=== PATIENT | female | born 1955 | race Caucasian/White ===

== ENCOUNTER 2019-09-09 07:38 | Inpatient (IN) | payer MEDICARE, MEDICAID ==
[2019-09-09] MEDS ORDERED: Morphine 4 MG/ML VIAL (1 ml) 4 MG/ML VIAL IV ONE ×2 (07:47→10:43)
[2019-09-09] MEDS ORDERED: NS 0.9% 1000 ML** 1,000 ML IV ONE (07:47)
--- NOTE | 2019-09-09 07:53 | ED ---
Skin Complaint - HPI Summary HPI Summary: The patient is a 64 y/o F arriving by ambulance to [facility] with a chief complaint of painful lesion to the lower sternal chest for the last three weeks. She reports that when the changes in her skin began, there was erythema surrounding a larger darkened area with pain especially to touch. Since onset, she states that the darkened area has since become smaller, but there is still erythema and pain as well as discharge from the wound. Pain currently rated 10/10 in severity. She denies any jones to the area, and she has not experienced any fevers or chills. She notes a severe sore throat that began yesterday. There are no rashes anywhere else on her body. PMHx: HTN, COPD, scoliosis. Current smoker, no EtOH, no substance use. Medications reviewed. Allergies noted. - History of Current Complaint Stated Complaint: CHEST WOUND/SORE THROAT PER EMS Hx Obtained From: Patient Onset/Duration: Started Weeks Ago - three, Still Present Skin Exposure Onset/Duration: Weeks Ago Timing: Constant Onset Severity: Moderate Current Severity: Severe Pain Intensity: 10 Pain Scale Used: 0-10 Numeric Skin Location: Chest - lower Character: Pain, Redness Aggravating Symptom(s): Touch Alleviating Symptom(s): Nothing Associated Signs & Symptoms: Drainage - from wound - Allergy/Home Medications Allergies/Adverse Reactions: Allergies Allergy/AdvReac Type Severity Reaction Status Date / Time No Known Allergies Allergy Verified 08/10/19 09:18 Home Medications: Home Medications Atorvastatin* [Lipitor*] 40 mg PO DAILY 09/09/19 [History Confirmed 09/09/19] Budesonide/Formote 160/4.5(NF) [Symbicort 160/4.5 (NF)] 2 puff INH BID PRN 09/09 [History Confirmed 09/09/19] Cyclobenzaprine TAB* [Flexeril 10 MG TAB*] 10 mg PO TID PRN 09/09/19 [History Confirmed 09/09/19] Gabapentin CAP(*) [Neurontin 300 CAP(*)] 300 mg PO TID 09/09/19 [History Confirmed 09/09/19] Ibuprofen TAB* [Motrin TAB* 600 MG] 600 mg PO .Q6-8H PRN 09/09/19 [History Confirmed 09/09/19] Lisinopril/Hydrochlorothiazide [Lisinopril-Hctz 10-12.5 mg Tab] 1 - 2 tab PO DAILY 09/09/19 [History Confirmed 09/09/19] Multivitamins/Minerals TAB* [Theragran/minerals TAB*] 1 tab PO DAILY 09/09/19 [ History Confirmed 09/09/19] Oxycodone TAB(NF) [Oxycodone HCl 10 MG] 10 mg PO .2-3X/DAY PRN 09/09/19 [ History Confirmed 09/09/19] Sertraline* [Zoloft*] 50 mg PO DAILY 09/09/19 [History Confirmed 09/09/19] Triamcinolone 0.1% Oint (NF) [Triamcinolone Acetonide] 0.1 % TOPICAL BID [History Confirmed 09/09/19] diphenhydrAMINE HCl [Sleep Aid] 25 mg PO BEDTIME PRN 09/09/19 [History Confirmed 09/09/19] PMH/Surg Hx/FS Hx/Imm Hx Endocrine/Hematology History: Denies: Hx Diabetes Cardiovascular History: Reports: Hx Hypertension - TAKES MEDICATION Denies: Hx Pacemaker/ICD Respiratory History: Reports: Hx Chronic Obstructive Pulmonary Disease (COPD) History: Denies: Hx Dialysis, Hx Renal Disease Musculoskeletal History: Reports: Hx Scoliosis Sensory History: Denies: Hx Hearing Aid Psychiatric History: Denies: Hx Panic Disorder - Surgical History Surgical History: Yes Surgery Procedure, Year, and Place: 10/30/08 LEFT L4-5 LAMINOTOMY,[facility]. DECREASED OVARIES/WEDGE - Family History Known Family History: Positive: Hypertension - Social History Alcohol Use: None Hx Substance Use: No Substance Use Type: Reports: None Hx Tobacco Use: Yes Smoking Status (MU): Current Every Day Smoker Review of Systems Negative: Fever, Chills Positive: Sore Throat Positive: Other - erythema and blackened lesion to the chest with pain, discharge from wound. Negative: Rash - anywhere else on body All Other Systems Reviewed And Are Negative: Yes Physical Exam - Summary Physical Exam Summary: Constitutional: Well-developed, Well-nourished, Alert. (-) Distressed Skin: Warm, Dry; 6cm by 6cm necrotic-looking tissue centered on the lower aspect of the sternum, the superior aspect to that has eroded tissue with subcutaneous tissue visualized, slight erythema surrounding the area with tenderness HENT: Normocephalic; Atraumatic Eyes: Conjunctiva normal Neck: Musculoskeletal ROM normal neck. (-) JVD, (-) Stridor, (-) Tracheal deviation Cardio: Rhythm regular, rate normal, Heart sounds normal; Intact distal pulses; Radial pulses are 2+ and symmetric. (-) Murmur Pulmonary/Chest wall: Effort normal. (-) Respiratory distress, (-) Wheezes, (-) Rales Abd: Soft, (-) tenderness, (-) Distension, (-) Guarding, (-) Rebound Musculoskeletal: (-) Edema Lymph: (-) Cervical adenopathy Neuro: Alert, Oriented x3 Psych: Mood and affect Normal Triage Information Reviewed: Yes Vital Signs Reviewed: Yes Procedures - Sedation Patient Received Moderate/Deep Sedation with Procedure: No Diagnostics - Laboratory Result Diagrams: 09/09/19 07:57 09/09/19 07:57 Lab Statement: Any lab studies that have been ordered have been reviewed, and results considered in the medical decision making process. - CT Chest CT CT Interpretation Completed By: Radiologist Summary of CT Findings: Impression: 1. Soft tissue ulceration anterior to the sternum without appreciable associated erosion or periosteal reaction of the sternum. 2. Patchy airspace disease of the upper lungs bilaterally. 3. Cirrhotic liver. 4. Bilateral adrenal nodules measuring up to 2.4 cm. These are indeterminate and the differential includes metastatic disease to the adrenal glands. Recommend consideration of tissue sampling. ED physician has reviewed this report. Re-Evaluation - Re-Evaluation First Eval Re-Evaluation Time: 10:10 Comment: Discussed results and plan for further treatment with admission. Patient understands and agrees with plan. Course/Dx - Course Course Of Treatment: Patient arrived via EMS with a wound to her chest for 3 weeks. Patient has necrotic-looking wound that [place] straight into her subcutaneous tissue. Outside of that, patient's overall well-appearing. Patient had blood performed which showed a sodium of 118. Patient appears euvolemic but needs to be worked up for that as she's never had hyponatremia before. Patient had a CT scan which showed no erosion into the sternum. Surgery was counseled that in the debridement of the wound at bedside. Patient was admitted to the ICU. - Diagnoses Provider Diagnoses: Hyponatremia, Skin necrosis, Leukocytosis - Physician Notifications Discussed Care Of Patient With: Kyliegh Maddox - structural analyst Time Discussed With Above Provider: 09:55 Instructed by Provider To: Other - Dr. Fang, hospitalist, recommends admission to ICU. I discussed the patients case with Dr. Maddox, who accepts the patient for admission to the ICU. She recommends consultation with surgery. I spoke with Dr. Durham from surgery, who will consult for the patient [10:00]. - Critical Care Time Critical Care Time: 30-74 min - 35 minutes Discharge ED - Sign-Out/Discharge Documenting (check all that apply): Patient Departure - Patient accepted for admission to ICU by Dr. Maddox. - Discharge Plan Condition: Stable Disposition: ADMITTED TO [facility] - Billing Disposition and Condition Condition: STABLE Disposition: Admitted to [facility] - Attestation Statements Document Initiated by Ty: Yes Documenting Scribe: Halle Morillo Provider For Whom Ty is Documenting (Include Credential): Dr. Malvin Delaney MD Scribe Attestation: IHalle, scribed for Dr. Malvin Delaney MD on 09/09/19 at 1514. Scribe Documentation Reviewed: Yes Provider Attestation: The documentation as recorded by the Halle zaragoza accurately reflects the service I personally performed and the decisions made by me, Dr. Malvin Delaney MD Status of Ty Document: Viewed
[2019-09-09 08:06] LABS: ABS Basophils 0.1 10^3/ul (0-0.2); ABS Eosinophils 0.2 10^3/ul (0-0.6); ABS Lymphocytes 1.4 10^3/ul (1.0-4.8); ABS Monocytes 0.8 10^3/ul (0-0.8); ABS Neutrophils 15.8 10^3/ul (1.5-7.7); Eosinophil % 1.2 %; Hematocrit 36 % (35-47); Lymphocyte % 7.8 %; Mean Corpuscular HGB Conc 36 g/dL (31-36); Mean Corpuscular Hemoglobin 31 pg (27-31); Mean Corpuscular Volume 87 fL (80-97); Platelet Count 350 10^3/uL (150-450); Red Blood Count 4.16 10^6 /uL (3.70-4.87); Red Cell Distribution Width 13 % (10-15); White Blood Count 18.3 10^3/uL (3.5-10.8)
[2019-09-09 08:16] LABS: INR 1.41 (0.82-1.09)
[2019-09-09 08:22] LABS: Albumin 3.4 g/dL (3.2-5.2); Albumin/Globulin Ratio 0.9 (1-3); BUN/Creatinine Ratio 28.3 (8-20); C Reactive Protein 109.53 mg/L (<8.01); Calcium 8.7 mg/dL (8.6-10.3); EGFR African American 122.6 (>60); EGFR Non-African American 101.3 (>60); Globulin 3.7 g/dL (2-4); Potassium 2.9 mmol/L (3.5-5.0); Total Bilirubin 0.7 mg/dL (0.2-1.0); Total Protein 7.1 g/dL (6.4-8.9)
[2019-09-09] MEDS ORDERED: Iohexol 300* (CONTRAST) 10 ML SDV IV ONE (08:26)
[2019-09-09] MEDS ORDERED: Clindamycin 600 MG/D5W BAG(*) 600 MG/50 ML BAG IV ONE (08:57)
[2019-09-09] MEDS ORDERED: Vancomycin(*) 1,500 MG in NS 0.9% 250 ML* 250 ML IVPB ONE (09:03)
[2019-09-09 09:28] LABS: Urine Appearance Clear; Urine Bilirubin Negative (Negative); Urine Blood 1+ (Negative); Urine Color Straw; Urine Glucose Negative (Negative); Urine Ketones Negative (Negative); Urine Nitrite Negative (Negative); Urine Protein Negative (Negative); Urine Specific Gravity 1.004 (1.010-1.030); Urine Urobilinogen Negative (Negative)
[2019-09-09 09:34] LABS: Urine Bacteria 1+ (Absent); Urine Red Blood Cell Trace(0-2/hpf) (Absent); Urine Squamous Epithelial Cell Present (Absent); Urine White Blood Cell 1+(6-10/hpf) (Absent)
[2019-09-09] MEDS ORDERED: NS 0.9% 250 ML* 250 ML ONE (10:00)
[2019-09-09] MEDS ORDERED: Lidocaine 1% MPF ** 5 ML VIAL ONE (10:26)
[2019-09-09] MEDS ORDERED: NS 0.9% 1000 ML** 1,000 ML IV SCH (10:45)
--- NOTE | 2019-09-09 11:22 | HP ---
History of Present Illness - History of Present Illness Reason for Visit: sternal wound for 6 weeks History of Present Illness: 64 year old F with history of Hypertension, COPD, chronic back pain and tobacco use presented to [facility] with complain of anterior chest wall wound associated with pain. According to patient she was apparently well 6 weeks ago then she noticed dark erythematous area surrounded by light erythematous area on the lower sternum which was tender to touch. It was gradual on onset, slowly progressive with erythema turning to open wound and there was discharge from the wound since 1-2 days which was dark brown in color and contained some pus. It is associated with pain which according to her is 10/10 and is increased by touch; which prompted her to come to ED. She denies fever, chills and rigor. According to her, she is also having sore throat for couple of days associated with difficulty in swallowing. She also has cough which is productive at times; whitish in color. She denies chest pain, shortness of breath and palpitation. She mentions that she is not eating and drinking well because of her sore throat. She denies burning or increased frequency of micturition. She has normal bowel habit with last BM today morning. She denies fatigue and weakness. Hospital stay Her vitals are stable except mild tachycardia. Blood work showed WBC of 18.3 with left shift, Na 118, K 2.9, Cl 81, AST 101, ALT 59, CRP 109.3 and abnormal urinalysis. Chest CT was done which showed soft tissue ulceration anterior to sternum without osteomyelitis, Patchy airspace disease of the upper lungs bilaterally, cirrhotic liver, and bilateral adrenal nodule measuring up to 2.4 cm recommending tissue sampling. She was given IVF and IV antibiotics. Surgery was consulted and debridement of wound was done and sent to lab. - Past Medical History Past Medical History: 1. COPD 2. Hypertension 3. Scoliosis 4. Chronic back pain - Past Surgical History Past Surgical History: 1. Lumbar disckectomy 2. Ovarian Surgery - Past Family History Past Family History: Noncontributory - Past Social History Past Social History: Patient lives alone and is on disability. She smokes 1-1 and half of cigarette a day since she was 15. She quit alcohol 6 years ago; used to drink depending on mood, sometimes 6 pack of beer. She denies recreational drug use. Her PCP is Juana Guillen. She is full code. Medications: Home Medications Medication Instructions Recorded Confirmed Type Atorvastatin* [Lipitor*] 40 mg PO DAILY 09/09/19 09/09/19 History Budesonide/Formote 160/4.5(NF) 2 puff INH BID PRN 09/09/19 09/09/19 History [Symbicort 160/4.5 (NF)] Cyclobenzaprine TAB* [Flexeril 10 10 mg PO TID PRN 09/09/19 09/09/19 History MG TAB*] Gabapentin CAP(*) [Neurontin 300 300 mg PO TID 09/09/19 09/09/19 History CAP(*)] Ibuprofen TAB* [Motrin TAB* 600 MG] 600 mg PO .Q6-8H PRN 09/09/19 09/09/19 History Lisinopril/Hydrochlorothiazide 1 - 2 tab PO DAILY 09/09/19 09/09/19 History [Lisinopril-Hctz 10-12.5 mg Tab] Multivitamins/Minerals TAB* 1 tab PO DAILY 09/09/19 09/09/19 History [Theragran/minerals TAB*] Oxycodone TAB(NF) [Oxycodone HCl 10 mg PO .2-3X/DAY PRN 09/09/19 09/09/19 History 10 MG] Sertraline* [Zoloft*] 50 mg PO DAILY 09/09/19 09/09/19 History Triamcinolone 0.1% Oint (NF) 0.1 % TOPICAL BID 09/09/19 09/09/19 History [Triamcinolone Acetonide] diphenhydrAMINE HCl [Sleep Aid] 25 mg PO BEDTIME PRN 09/09/19 09/09/19 History Allergies/Adverse Reactions: Allergies Allergy/AdvReac Type Severity Reaction Status Date / Time No Known Allergies Allergy Verified 08/10/19 09:18 Review of Systems - Review of Systems Constitutional: Negative: Fever, Chills, Sweats, Weakness, Malaise, Other Eyes: Negative: Pain, Vision Change, Conjunctivae Inflammation, Eyelid Inflammation, Redness, Other ENT: Positive: Throat Pain. Negative: Ear Pain, Ear Discharge, Nose Pain, Nose Discharge, Nose Congestion, Mouth Pain, Mouth Swelling, Throat Swelling, Other Respiratory: Positive: Cough. Negative: Dry, Shortness of Breath, Hemoptysis, SOB with Excertion, Pleuritic Pain, Sputum, Wheezing Cardiovascular: Positive: Chest Pain. Negative: Palpitations, Orthopnea, Paroxysmal Noc. Dyspnea, Edema, Light Headedness, Other Gastrointestinal: Negative: Nausea, Vomiting, Abdominal Pain, Diarrhea, Constipation, Melena, Hematochezia, Other Genitourinary: Negative: Dysuria, Frequency, Incontinence, Hematuria, Retention , Other Musculoskeletal: Positive: Back Pain. Negative: Neck Pain, Shoulder Pain, Arm Pain, Hand Pain, Leg Pain, Foot Pain, Other Skin: Positive: Rash, Lesions. Negative: Stephane, Bruising, Other Neurological: Negative: Weakness, Numbness, Incoordination, Change in Speech, Confusion, Seizures, Other Exam Vital Signs: Vital Signs (72 hours) 09/09/19 09/09/19 09/09/19 07:42 08:49 10:49 Temperature 98.5 F Pulse Rate 97 Respiratory 18 18 18 Rate Blood Pressure 166/79 (mmHg) O2 Sat by Pulse 98 Oximetry Exam: General: Patient is lying on a bed with no acute distress, well built and well appearing HEENT: Normocephalic and atraumatic. Sclera anicteric and PERRLA Neck: No JVD and organomegaly Chest: Pre-debridement:Open wound on lower part of sternum around 6.5 X 4cm; erythematous and tenderness present. No active discharge noted. Post-debridement : Dressing C/D/I Lungs: Good respiratory effort. clear with no added sound heard Heart: Normal in rate and rhythm. S1/S2 heard with no murmur, rub and gallop Abdomen: Soft, nondistended and nontender. Normal BS heard Extremities: No swelling and cyanosis or clubbing Neuro: Alert, oriented and cooperative. Moving all four extremity equally. Result Diagrams: 09/09/19 07:57 09/09/19 07:57 Assessment/Plan - Assessment/Plan Assessment: 64 F with PMH of HTN, COPD, scoliosis and tobacco use presented with subacute lower sternal wound associated with pain and tenderness. FOund to be in sepsis( tachycardia and leucocytosis) with source being open wound, severe asymtomatic hyponatremia, hypokalemia, transaminitis and elevated CRP. Chest CT showing soft tissue ulceration on anterior sternum without OM, cirrhosis of liver and bilateral adrenal nodule. Received IVF and iv abx. Admitted to ICU because of sepsis and severe hyponatremia. Plan: Hospital diagnosis 1. Sepsis 2/2 anterior chest wall wound 2. Severe Hyponatremia 3. Hypokalemia 4. Bilateral adrenal nodule 5. Cirrhosis of liver Cardiovascular: (1) Hypertension -- HR 97 bpm -- SBP 166 -- Telemetry --We will hold her BP meds as she is in sepsis; once this subsides or if her BP elevates we will restart her home med. --Do not start HCTZ as this could also be the cause for her electrolyte abnormality Home meds:Lisinopril, HCTZ, Lipitor Pulmonary: (1) COPD -- RR 18 -- sats 98% on room air -- Continue home inhaler Home meds: symbicort Gastrointestinal:(1) Transaminitis (2) Cirrhosis -- LFTs Tbili 0.8 ALP 83 AST 101 ALT 59 -- No ascites -- diet: NPO -- bowel regimen: None -- ulcer prophylaxis: not indicated at this time --Avoid liver toxic meds Home meds: None Endocrine: (1) Bilateral adrenal nodules measuring 2.4 cm (2) Hirsutism --Hirsutism- she has history of ovarian surgery which according to her was because of enlarged ovary; which means she had PCOS given her hirsutism which explains it cause; If not then this could also be from adrenal mass which is secreting sex hormones -Given her adrenal mass, HTN, hypokalemia we should also consider sending PAC and PRA; CT recommends tissue sampling. D/D for adrenal mass- malignancy(less likely), macronodular hyperplasia, cortical adenoma -- monitor BGs Home meds: None Renal: (1) Severe Hyponatremia (2) Hypokalemia -- UOP: strict ins and outs -- Cr 0.60 -- Lytes Na 118; trend K 2.9; KCL given Ca 8.7 Mag pending -- IVF: NS @ 100 ml/hr; got bolus in ED --pending serum osm, urine osm and electrolytes --differential for hyponatremia include- inadequate intake, medication induced, hypothyroidism. pending TSH --hold HCTZ- which potentially causes electrolyte abnormality --repleting electroytes Home meds: None Infectious disease: (1) Sepsis; (2) Abnormal urinalysis (3) Soft tissue infection of anterior chest wall -- Tmax 98.5 -- WBC 18.3 --elevated CRP- 109.3 -- Micro UA positive Urine cx in process MRSA ordered -- ABX Vancomycin(day 1) Cefepime --Asymptomatic for UTI Home meds: None Neurologic: (1)Chronic back pain -- PRN ibuprofen -- PRN oxycodone for pain control Home meds: Gabapentin, oxycodone, ibuprofen, flexeril Hematological: No acute issues -- Hgb 13 -- Plt 350 -- Coags INR 1.41 -- DVT prophylaxis: SQ Lovenox Home meds: None Metabolic: Home meds: None Other: Scoliosis Home meds: None Deep vein thrombosis prophylaxis: SQ Lovenox Dietary: NPO Condition: critical Prognosis: guarded Code status: Full code Disposition:continue ICU care Critical Care Time spent in the care of this patient (excluding any procedure time): at least 60 minutes. Patient care included clinical interview (with patient and/or family), bedside exam of the patient, review of labs, x-rays, and other ancillary data, coordination of (respiratory, nursing care, review of patient's records, discussion regarding patients management with involved consultants, primary physician, pharmacists, and other healthcare personnel (dietary, case management , physical/occupational therapy etc.) Attestation Documenting Resident: Hamlet Mcmanus Supervising Physician: Kyleigh Maddox Attestation: This service has been performed in part by a resident under the direction of a teaching physician.I, Kyleigh Maddox, performed the service, or was physically present during the critical, or wong portions of the service, furnished by the resident. I participated in the management of the patient.
[2019-09-09] MEDS ORDERED: Mometasone/Formoter 200/5 MDI INH PRN (11:42)
[2019-09-09] MEDS ORDERED: Vancomycin per Pharmacy* NOTE FOLLOW UP SCH (12:00)
--- NOTE | 2019-09-09 12:34 | PN ---
Progress Note - Progress Note Date of Service: 09/09/19 Note: Brief Surgery Note: (full consult note dictated) (seen and examined with Dr. Durham) 64 yo female w/ 3 wk hx of black skin wound of the lower sternum, not preceded by any burn or trauma, though does admit to a slowly enlarging firm mass in the same area over a 6 mo period. She notes pain associated with the area over the past few days ("14" on a 10 point scale, though she appears comfortable) and foul drainage over the past 1-2 days. She denies fever or chills. PE: lower sternal wound pre-debridement shows what appears to be full thickness skin necrosis in a triangular shaped lesion measuring 6.5 x 4 cm, with a rim of erythema measuring up to 1 cm. After timeout and administration of lidocaine subcutaneously, the skin was sharply debrided by Dr. Durham, along with the contents of the wound which included cloudy thin white drainage, thickened whitish material consistent with sebaceous material, and some glistening thin white material consistent with inclusion cyst wall. The base of the wound was generally clean with healthy appearing granulation. The depth of the wound was up to 3.5 cm with up to 1 cm of undermining along the edge. Imp: necrotic sternal wound, likely related to an enlarging, possibly infected and/or ruptured inclusion cyst, now s/p debridement P: local wound care (see orders); antibiotics per medicine (culture and surgical pathology submitted); consideration of wound VAC once wound cleans up. She is admitted to the medical service for management of her sepsis and electrolyte abnormalities. We will continue to follow.
[2019-09-09] MEDS: KCL 20 MEQ/100 ML IVPREMIX* 20 MEQ/100 ML BAG IV SCH ×5 (13:01→23:42)
[2019-09-09] MEDS: Enoxaparin(*) 40 MG/0.4 ML SYR SUBCUT SCH (13:01)
[2019-09-09 13:33] LABS: TSH (Thyroid Stimulating Horm) 3.11 mcIU/mL (0.34-5.60)
--- NOTE | 2019-09-09 13:48 | CONS ---
CC: [facility] * SURGICAL CONSULT NOTE: DATE OF CONSULT: 09/09/19 ATTENDING SURGEON: Dr. Stephanie Durham. CHIEF COMPLAINT: Sternal wound. HISTORY OF PRESENT ILLNESS: This is a 64-year-old female with significant past medical history of hypertension, hyperlipidemia, chronic back pain and scoliosis , who states that beginning about 3 weeks ago she noted development of a black wound over her lower central sternum. This was not preceded by any acute injury , trauma, or burn. However, she does admit to there being a firm gradually enlarging mass in the same area over the prior 6 months. Initially, there was no pain associated with the wound, but in the past couple of days she states that the pain was significant even up to a level of 14 on a 10-point scale. She also noted over the past 24 to 48 hours foul-smelling drainage from the wound. She presented to the ED. On initial exam and interview, she also was noted to have small abrasion wound on the bridge of her nose, broken eyeglasses , and superficial abrasions on both elbows and knees. She states that this was related to a fall in her kitchen, though she denies anything other than generalized weakness that precipitated the fall. She denies syncope or near syncope and states that this event seemed to be unrelated to the presenting sternal wound. She denies fever or chills. PAST MEDICAL HISTORY: Chronic back pain (uses oxycodone approximately 3 times daily), hypertension, hyperlipidemia, scoliosis. PAST SURGICAL HISTORY: Noted in her admission and physical. FAMILY HISTORY: Noted in her admission and physical. SOCIAL HISTORY: Noted in her admission and physical. REVIEW OF SYSTEMS: Also as per her admission history and physical, without any additions to the HPI. PHYSICAL EXAM: T-max 99.1, blood pressure 152/81, pulse 90, respirations 18, room air saturation 95% to 98%. General: Well-nourished, well-developed female , in no acute distress. She appears comfortable, though states that she does have pain at the present time. The patient was seen and examined with Dr. Durham. Skin is notable for the afore-mentioned areas of minor abrasion over both elbows, both knees and the bridge of her nose. These all appeared to be related to minor trauma. In the lower sternal area, there is a triangular- shaped lesion, which appears to have full- thickness necrosis of the skin with a small opening at the superior portion measuring slightly less than 1 cm. From this, there appears to be exudate underneath. There is a rim of erythema extending up to approximately 1 cm around the wound. There is tenderness to palpation, though it is limited to the immediate wound and its edges. The remainder of the exam is as per the admission history and physical and was not repeated here. DIAGNOSTIC STUDIES/LAB DATA: Of note, white blood cell count 18,300. INR is 1.41. Chemistries show a sodium of 118, potassium of 2.9, chloride of 81, BUN and creatinine are normal. Serum osmolality of 257. Lactic acid of 0.7. AST 101, ALT 59. CRP 110. Imaging: (CT of the chest) Reveals soft tissue ulceration of the anterior sternum without appreciable bony involvement. In addition, there is noted to be patchy airspace disease of the upper lungs bilaterally, a cirrhotic appearing liver, and bilateral adrenal nodules measuring up to 2.4 cm for which consideration was recommended for tissue sampling. IMPRESSION: Necrotic wound, lower sternum. PROCEDURE: After verbally explaining the procedure, obtaining consent and performing time-out, the skin area was prepped with Betadine. Local anesthesia (plain lidocaine) was administered subcutaneously. The wound was debrided sharply by Dr. Durham off the overlying necrotic skin revealing a wound that overall measured 6.5 x 4 cm with a depth of up to 3.5 cm and undermining up to 1 cm. Contents of the wound included thin cloudy watery drainage as well as thick sebaceous appearing material and evidence of a cyst wall. Culture as well as surgical pathology specimens were submitted. The wound was sharply and bluntly debrided as best as the patient was able to tolerate. The wound base was essentially clean with granulation present. A saline-moistened 1-inch roller gauze was placed to the wound bed followed by 4x4 cover dressings and tape. The patient tolerated the procedure well. PLAN: Pathology and cultures are pending. Antibiotics will be per the hospitalist team. We will continue to follow. The wound may benefit from application of a wound VAC in time. JAQUELIN SILVA [id number]/[facility] #: [id number] [facility] NYACK HOSPITALLidya
[2019-09-09] MEDS ORDERED: Cefepime 2 GM in Dextrose(*) 2 GM/50 ML BAG IV SCH (14:00)
[2019-09-09] MEDS ORDERED: Zosyn per Pharmacy* NOTE FOLLOW UP SCH (14:00)
[2019-09-09] MEDS ORDERED: diPHENhydraMINE PO* 25 MG PO PRN (14:01)
[2019-09-09] MEDS ORDERED: Cyclobenzaprine TAB* 10 MG PO PRN (14:01)
[2019-09-09] MEDS ORDERED: Ibuprofen TAB* 600 MG PO PRN (14:01)
[2019-09-09] MEDS ORDERED: oxyCODONE TAB* 5 MG TAB PO PRN (14:01)
[2019-09-09 15:34] LABS: Calcium 8.1 mg/dL (8.6-10.3)
[2019-09-09 15:37] LABS: Potassium 3.1 mmol/L (3.5-5.0)
[2019-09-09 15:39] LABS: EGFR African American 151.3 (>60)
[2019-09-09 15:51] LABS: BUN/Creatinine Ratio 26.4 (8-20); Calcium 8.3 mg/dL (8.6-10.3); EGFR African American 141.4 (>60); EGFR Non-African American 116.9 (>60); Potassium 2.9 mmol/L (3.5-5.0)
[2019-09-09] MEDS: Cefepime 2 GM in Dextrose(*) 2 GM/50 ML BAG IV SCH (16:15)
[2019-09-09 20:57] LABS: BUN/Creatinine Ratio 24.6 (8-20); Blood Urea Nitrogen 14 mg/dL (6-24); CO2 Carbon Dioxide 26 mmol/L (22-32); Calcium 8.1 mg/dL (8.6-10.3); Chloride 94 mmol/L (101-111); EGFR Non-African American 107.5 (>60); Glucose 125 mg/dL (70-100); Sodium 125 mmol/L (135-145)
[2019-09-09 20:59] LABS: Anion Gap 5 mmol/L (2-11)
[2019-09-09] MEDS: NS 0.9% 1000 ML** 1,000 ML IV SCH ×2 (20:59→23:44)
--- NOTE | 2019-09-09 21:06 | PRO ---
PROCEDURE NOTE: DATE OF PROCEDURE: 09/09/19 SURGEON: Stephanie Durham MD. PRE-PROCEDURE DIAGNOSIS: Chest wall necrotic wound. POST PROCEDURE DIAGNOSIS: Chest wall necrotic wound. PROCEDURE: Debridement of chest wall wound. INDICATIONS FOR PROCEDURE: Ms. Abrams is a 64-year-old female who presented to the emergency room this morning with complaints of drainage from a large chest wall wound that she has had for approximately 3 weeks. She said that for the past 6 months, there been a small, non tender lump at her chest wall. She said that this lump eventually became black and then developed into this necrotic wound in the past 3 weeks. She said it was tender and that the blackened skin began to widen and then this morning she noticed some drainage. Therefore, she came to the emergency room. She was found to have an elevated white blood cell count as well as hyponatremia. She underwent a chest CT that showed a defect that extended towards the sternum; however, it did not appear that the bone was involved. She states that she has also had a very bad sore throat, has been drinking a lot of water; otherwise, she has no complaints. She gave informed consent for debridement of the chest wall wound. She understood that the risks included but were not limited to bleeding, infection, injury to nearby structures. DESCRIPTION OF PROCEDURE: The patient was laid supine on the stretcher and her chest wall was prepped and draped in normal sterile fashion. A time-out was performed to verify the patient's name, date of , and procedure to be performed. Lidocaine 1% was infiltrated into the skin surrounding the wound and then using the scissors, the necrotic superficial eschar was sharply debrided. The area of the wound was approximately 6.5 x 4 x 3.5 cm with approximately 1 cm of undermining surrounding the wound. Once the necrotic eschar overlying the wound was removed, underneath there was an area of liquified necrotic tissue that was drained and then debrided. Some of the tissue was sent for culture and the wound and fluid was also sent for culture and sensitivity. The wound itself had a base with beefy granulating tissue. This was viable and bled with sharp debridement. After the wound was debrided, it was irrigated with normal saline and packed with moist gauze and dressing. The patient tolerated the procedure well. There were no complications. Wound care instructions will be provided to the nursing staff. [id number]/[facility] #: [id number] LIVE
[2019-09-09] MEDS: Gabapentin CAP(*) 300 MG PO SCH (21:20)
[2019-09-09] MEDS: Vancomycin(*) 1,250 MG in NS 0.9% 250 ML* 250 ML IVPB SCH (23:21)
[2019-09-10] MEDS: KCL 20 MEQ/100 ML IVPREMIX* 20 MEQ/100 ML BAG IV SCH (01:55)
[2019-09-10] MEDS: Cefepime 2 GM in Dextrose(*) 2 GM/50 ML BAG IV SCH (03:26)
[2019-09-10 04:15] LABS: Urine Chloride Concentration < 22 mmol/L; Urine Potassium Concentration 7.6 mmol/L; Urine Sodium Concentration < 18 mmol/L
[2019-09-10 05:11] LABS: Hematocrit 34 % (35-47); Hemoglobin 11.5 g/dL (12.0-16.0); Mean Corpuscular HGB Conc 34 g/dL (31-36); Mean Corpuscular Hemoglobin 31 pg (27-31); Mean Corpuscular Volume 90 fL (80-97); Mean Platelet Volume 6.8 fL (7.4-10.4); Platelet Count 289 10^3/uL (150-450); Red Blood Count 3.77 10^6 /uL (3.70-4.87); Red Cell Distribution Width 13 % (10-15); White Blood Count 12.5 10^3/uL (3.5-10.8)
[2019-09-10 05:23] LABS: BUN/Creatinine Ratio 22.6 (8-20); EGFR African American 141.4 (>60); EGFR Non-African American 116.9 (>60); Magnesium 1.9 mg/dL (1.9-2.7); Potassium 4.1 mmol/L (3.5-5.0)
[2019-09-10] MEDS ORDERED: Atorvastatin* 40 MG TAB PO SCH (09:00)
[2019-09-10] MEDS ORDERED: Sertraline* 50 MG TAB PO SCH (09:00)
[2019-09-10] MEDS: Gabapentin CAP(*) 300 MG PO SCH ×2 (09:35→13:07)
[2019-09-10] MEDS: Vancomycin(*) 1,250 MG in NS 0.9% 250 ML* 250 ML IVPB SCH (11:04)
[2019-09-10] MEDS ORDERED: NS 0.9% 1000 ML** 1,000 ML IV SCH (11:37)
--- NOTE | 2019-09-10 11:38 | PN ---
Date of Service: 09/10/19 - HD 2 Critical Care Services: 64 year old F with history of Hypertension, COPD, chronic back pain and tobacco use presented to [facility] with complain of anterior chest wall wound associated with pain. According to patient she was apparently well 6 weeks ago then she noticed dark erythematous area surrounded by light erythematous area on the lower sternum which was tender to touch. It was gradual on onset, slowly progressive with erythema turning to open wound and there was discharge from the wound since 1-2 days which was dark brown in color and contained some pus. It is associated with pain which according to her is 10/10 and is increased by touch; which prompted her to come to ED. She denies fever, chills and rigor. According to her, she is also having sore throat for couple of days associated with difficulty in swallowing. She also has cough which is productive at times; whitish in color. She denies chest pain, shortness of breath and palpitation. She mentions that she is not eating and drinking well because of her sore throat. She denies burning or increased frequency of micturition. She has normal bowel habit with last BM today morning. She denies fatigue and weakness. 09/10: No overnight events Vital Signs: Temp Pulse Resp BP SpO2 FiO2 97.3 F 86 23 142/82 98 09/10/19 07:54 09/10/19 09:00 09/10/19 09:00 09/10/19 08:15 09/10/19 09:00 Physical Exam: Gen: sitting up comfortably in chair HEENT: NC in place Lungs: nonlabored breathing Cardiac: RRR Abdomen: nondistended Extremities: moving equally Neuro: alert, oriented. Fluid Balance (Past 24 Hours): I= O= Net Intake & Output 09/08/19 09/09/19 09/10/19 09/11/19 06:59 06:59 06:59 06:59 Intake Total 3835 Output Total 3550 450 Balance 285 -450 Weight 175 lb 7.807 oz Intake: IV Fluids 2048 NS (0.9%) 1598 IVPB 987 Cefepime 130 Potassium 585 Vanco 272 Oral 800 Output: Urine 3550 450 Labs: Laboratory Results - last 24 hr 09/09/19 09/09/19 09/09/19 11:30 11:30 11:30 WBC RBC Hgb Hct MCV MCH MCHC RDW Plt Count MPV Sodium 123 L Potassium 3.1 L Chloride 88 L Carbon Dioxide 24 Anion Gap 11 BUN 14 Creatinine 0.50 L Est GFR ( Amer) 151.3 Est GFR (Non-Af Amer) 125.0 BUN/Creatinine Ratio 28.0 H Glucose 87 Serum Osmolality 257 L Lactic Acid 0.7 Calcium 8.1 L Magnesium TSH 3.11 Urine Osmolality U Sodium Concentration Urine Potassium Ur Chloride Concentrat 09/09/19 09/09/19 09/09/19 15:11 20:31 21:07 WBC RBC Hgb Hct MCV MCH MCHC RDW Plt Count MPV Sodium 124 L 125 L Potassium 2.9 L TNP 3.4 L Chloride 91 L 94 L Carbon Dioxide 26 26 Anion Gap 7 5 BUN 14 14 Creatinine 0.53 0.57 Est GFR ( Amer) 141.4 130.0 Est GFR (Non-Af Amer) 116.9 107.5 BUN/Creatinine Ratio 26.4 H 24.6 H Glucose 75 125 H Serum Osmolality Lactic Acid Calcium 8.3 L 8.1 L Magnesium TSH Cancelled Urine Osmolality U Sodium Concentration Urine Potassium Ur Chloride Concentrat 09/10/19 09/10/19 09/10/19 03:37 03:37 04:36 WBC 12.5 H RBC 3.77 Hgb 11.5 L Hct 34 L MCV 90 MCH 31 MCHC 34 RDW 13 Plt Count 289 MPV 6.8 L Sodium Potassium Chloride Carbon Dioxide Anion Gap BUN Creatinine Est GFR ( Amer) Est GFR (Non-Af Amer) BUN/Creatinine Ratio Glucose Serum Osmolality Lactic Acid Calcium Magnesium TSH Urine Osmolality 144 U Sodium Concentration < 18 Urine Potassium 7.6 Ur Chloride Concentrat < 22 09/10/19 04:36 WBC RBC Hgb Hct MCV MCH MCHC RDW Plt Count MPV Sodium 130 L Potassium 4.1 Chloride 102 Carbon Dioxide 23 Anion Gap 5 BUN 12 Creatinine 0.53 Est GFR ( Amer) 141.4 Est GFR (Non-Af Amer) 116.9 BUN/Creatinine Ratio 22.6 H Glucose 105 H Serum Osmolality Lactic Acid Calcium 8.0 L Magnesium 1.9 TSH Urine Osmolality U Sodium Concentration Urine Potassium Ur Chloride Concentrat Studies: 09/09 CXR - patchy bilateral infiltrates / CT chest - soft tissue ulceration anteiror to the sternum without appreciable associate erosion or periosteal reaction of the sternum patchy airspace disease of the upper lungs bilaterally cirrhotic liver bilateral adrenal nodules Nutrition: general diet Impression: 64 yo F admitted on 09/10 for hyponatremia and hypokalemia likely secondary to HCTZ use, bilateral adrenal nodules found incidentally on CT requiring workup and ulceration of the skin overlying the sternum which was debrided. Plan: Hospital Diagnoses: 1. Sepsis 2/2 anterior chest wall wound 2. Severe Hyponatremia 3. Bilateral adrenal nodule 4. Cirrhosis of liver Cardiovascular: (1) Essential HTN -- HR 79-98 -- SBP 90-174 -- Telemetry -- Atorvastatin -- hold off on restarting HCTZ as this is the most likely cause of her electrolyte disturbance Home meds: Lisinopril-HCTZ, Atorvastatin Pulmonary: (1) Community acquired bilateral pneumonia; (2) COPD; (3) Tobacco abuse -- RR 8-29 -- sats 90-98 on RA -- CXR: patchy bilateral infiltrates -- Dulera Home meds: Symbicort Gastrointestinal: (1) Cirrhosis of liver, chronic -- diet: regular diet -- bowel regimen: none -- ulcer prophylaxis: not indicated at this time Home meds: None Endocrine: (1) Bilateral adrenal nodules -- monitor BGs -- will need outpatient workup for adrenal nodules once current electrolyte issues resolved -- Plasma renin and aldosterone ordered Home meds: None Renal: (1) Hyponatremia; (2) Hypokalemia, resolved -- UOP: 148 ml/hr -- Cr 0.53 from 0.57 -- Lytes Na 130 from 125 K 4.1 Ca 8.0, replace Mag 1.9 -- IVF: NS @ 50 ml/hr Home meds: None Infectious disease: (1) Sepsis secondary to anterior chest wall wound -- Tmax 99.8 -- WBC 12.5 from 18.3 -- Micro 1/3 MRSA negative Chest in process (gram stain polymicrobial) UA negative -- ABX Cefepime Vancomycin -- General surgery following Home meds: None Neurologic: (1) Chronic back pain -- PRN Flexeril -- PRN Benadryl for sleep -- PRN Ibuprofen -- PRN Oxycodone for pain control -- Gabapentin -- Zoloft Home meds: Gabapentin, benadryl, Zoloft, Oxycodone, Ibuprofen, Flexeril Hematological: (1) Anemia -- Hgb 11.5 from 13.0 -- Plt 289 from 350 -- Coags INR 1.41 -- DVT prophylaxis: SQ Lovenox Home meds: None Metabolic: No acute issues Home meds: None Other: (1) Scoliosis Home meds: MVI Deep vein thrombosis prophylaxis: SQ Lovenox Dietary: not indicated at this time Condition: serious Prognosis: good Code status: full Disposition: transfer to floor Cumulative time spent in the care of this patient (excluding any procedure time) : at least 30 minutes. Patient care included clinical interview (with patient and/or family), bedside exam of the patient, review of labs, x-rays, and other ancillary data, coordination of (respiratory, nursing care, review of patient's records, discussion regarding patients management with involved consultants, primary physician, pharmacists, and other healthcare personnel (dietary, case management , physical/occupational therapy etc.) Critical Care Time: none
[2019-09-10] MEDS ORDERED: Sulfamethox/Trimethoprim DS 800/160* TAB PO SCH (13:00)
[2019-09-10] MEDS: Enoxaparin(*) 40 MG/0.4 ML SYR SUBCUT SCH (13:07)
--- NOTE | 2019-09-10 13:36 | PN ---
Progress Note - Progress Note Date of Service: 09/10/19 Note: Surgery Progress Note S: Patient feels well this morning no complaints. She wants to leave AMA because she has cats at home to feed. O: Vital Signs - 24 hr 09/09/19 09/09/19 09/09/19 13:46 14:00 14:16 Temperature Pulse Rate 80 84 82 Respiratory 19 18 19 Rate Blood Pressure 110/57 134/59 97/85 (mmHg) O2 Sat by Pulse 93 91 94 Oximetry 09/09/19 09/09/19 09/09/19 14:30 14:45 15:00 Temperature Pulse Rate 82 81 82 Respiratory 20 20 21 Rate Blood Pressure 119/60 134/73 (mmHg) O2 Sat by Pulse 91 92 94 Oximetry 09/09/19 09/09/19 09/09/19 15:01 15:45 16:00 Temperature 99.8 F Pulse Rate 81 Respiratory 19 19 Rate Blood Pressure 106/54 (mmHg) O2 Sat by Pulse 94 Oximetry 09/09/19 09/09/19 09/09/19 16:02 16:04 16:16 Temperature Pulse Rate 87 83 79 Respiratory 8 14 Rate Blood Pressure 123/70 123/56 (mmHg) O2 Sat by Pulse 95 96 93 Oximetry 09/09/19 09/09/19 09/09/19 16:31 16:46 17:00 Temperature Pulse Rate 81 81 79 Respiratory 24 15 19 Rate Blood Pressure 122/57 116/61 (mmHg) O2 Sat by Pulse 94 92 92 Oximetry 09/09/19 09/09/19 09/09/19 17:01 17:15 17:31 Temperature Pulse Rate 83 82 81 Respiratory 17 19 22 Rate Blood Pressure 107/55 113/51 110/51 (mmHg) O2 Sat by Pulse 91 90 91 Oximetry 09/09/19 09/09/19 09/09/19 17:45 18:00 18:01 Temperature Pulse Rate 79 81 80 Respiratory 21 14 14 Rate Blood Pressure 110/47 111/55 (mmHg) O2 Sat by Pulse 91 91 91 Oximetry 09/09/19 09/09/19 09/09/19 18:16 18:31 18:46 Temperature Pulse Rate 86 86 83 Respiratory 12 15 22 Rate Blood Pressure 164/141 135/87 123/70 (mmHg) O2 Sat by Pulse 96 93 92 Oximetry 09/09/19 09/09/1909/09/20 19:00 19:01 19:16 Temperature Pulse Rate 87 88 86 Respiratory 37 22 20 Rate Blood Pressure 119/58 129/58 (mmHg) O2 Sat by Pulse 91 91 91 Oximetry 09/09/19 09/09/19 09/09/19 19:31 19:33 19:45 Temperature 98.7 F Pulse Rate 85 84 Respiratory 21 21 Rate Blood Pressure 114/53 116/59 (mmHg) O2 Sat by Pulse 92 92 Oximetry 09/09/19 09/09/19 09/09/19 20:00 20:15 20:45 Temperature Pulse Rate 84 83 81 Respiratory 17 20 22 Rate Blood Pressure 114/53 105/52 127/61 (mmHg) O2 Sat by Pulse 91 93 92 Oximetry 09/09/19 09/09/19 09/09/19 21:00 22:00 23:00 Temperature Pulse Rate 83 81 79 Respiratory 29 24 20 Rate Blood Pressure 124/56 124/53 121/49 (mmHg) O2 Sat by Pulse 93 93 93 Oximetry 09/09/19 09/10/19 09/10/19 23:12 00:00 00:02 Temperature 97.8 F Pulse Rate 80 81 Respiratory 22 25 Rate Blood Pressure 128/59 (mmHg) O2 Sat by Pulse 93 93 Oximetry 09/10/19 09/10/19 09/10/19 01:00 02:00 02:01 Temperature Pulse Rate 80 81 82 Respiratory 25 21 22 Rate Blood Pressure 130/65 132/70 (mmHg) O2 Sat by Pulse 94 95 95 Oximetry 09/10/19 09/10/19 09/10/19 03:00 04:00 05:00 Temperature 98.2 F Pulse Rate 80 83 82 Respiratory 22 16 15 Rate Blood Pressure 130/64 129/62 129/59 (mmHg) O2 Sat by Pulse 96 92 94 Oximetry 09/10/19 09/10/19 09/10/19 06:00 06:03 07:00 Temperature Pulse Rate 80 81 78 Respiratory 20 25 Rate Blood Pressure 134/108 102/89 (mmHg) O2 Sat by Pulse 95 96 95 Oximetry 09/10/19 09/10/19 09/10/19 07:01 07:54 07:59 Temperature 97.3 F Pulse Rate 79 Respiratory 18 15 Rate Blood Pressure 134/67 (mmHg) O2 Sat by Pulse 96 Oximetry 0109/10/19 09/10/19 08:00 08:15 09:00 Temperature Pulse Rate 79 83 86 Respiratory 15 27 23 Rate Blood Pressure 142/82 (mmHg) O2 Sat by Pulse 95 95 98 Oximetry Intake & Output 09/09/19 09/10/19 09/10/19 22:59 06:59 14:59 Intake Total 1823 1562 Output Total 900 2050 950 Balance 923 -488 -950 Weight 175 lb 7.807 oz Intake: IV Fluids 1074 524 NS (0.9%) 1074 524 IVPB 429 558 Cefepime 65 65 Potassium 364 221 Vanco 272 Oral 320 480 Output: Urine 900 2050 950 Laboratory Results - last 24 hr 09/09/19 09/09/19 09/09/19 11:30 15:11 20:31 WBC RBC Hgb Hct MCV MCH MCHC RDW Plt Count MPV Sodium 123 L 124 L 125 L Potassium 3.1 L 2.9 L TNP Chloride 88 L 91 L 94 L Carbon Dioxide 24 26 26 Anion Gap 11 7 5 BUN 14 14 14 Creatinine 0.50 L 0.53 0.57 Est GFR ( Amer) 151.3 141.4 130.0 Est GFR (Non-Af Amer) 125.0 116.9 107.5 BUN/Creatinine Ratio 28.0 H 26.4 H 24.6 H Glucose 87 75 125 H Calcium 8.1 L 8.3 L 8.1 L Magnesium TSH 3.11 Cancelled Urine Osmolality U Sodium Concentration Urine Potassium Ur Chloride Concentrat 09/09/19 09/10/19 09/10/19 21:07 03:37 03:37 WBC RBC Hgb Hct MCV MCH MCHC RDW Plt Count MPV Sodium Potassium 3.4 L Chloride Carbon Dioxide Anion Gap BUN Creatinine Est GFR ( Amer) Est GFR (Non-Af Amer) BUN/Creatinine Ratio Glucose Calcium Magnesium TSH Urine Osmolality 144 U Sodium Concentration < 18 Urine Potassium 7.6 Ur Chloride Concentrat < 22 09/10/19 09/10/19 04:36 04:36 WBC 12.5 H RBC 3.77 Hgb 11.5 L Hct 34 L MCV 90 MCH 31 MCHC 34 RDW 13 Plt Count 289 MPV 6.8 L Sodium 130 L Potassium 4.1 Chloride 102 Carbon Dioxide 23 Anion Gap 5 BUN 12 Creatinine 0.53 Est GFR ( Amer) 141.4 Est GFR (Non-Af Amer) 116.9 BUN/Creatinine Ratio 22.6 H Glucose 105 H Calcium 8.0 L Magnesium 1.9 TSH Urine Osmolality U Sodium Concentration Urine Potassium Ur Chloride Concentrat Physical exam: Chest wall: dressing removed, granulation tissue present in wound bed and dry. Skin edges with darkened erythema. Wound re-packed with moist gauze A/P: 64 F with hyponatremia and wound over sternum s/p debridement. - Patient will require home health for wound care needs. She should have daily dressing wet to dry dressing changes and can follow up in the [facility] for further care. I advised her she should not leave AMA as she will need assistance with her dressing changes unless she can be instructed to do them on her own and she feels comfortable doing so. I discussed this with Dr. Maddox.
[2019-09-10 14:44] VITALS: BP 162/96
[2019-09-11] MEDS ORDERED: Vancomycin Trough Check NOTE FOLLOW UP ONE (10:30)
[2019-09-11] MEDS ORDERED: Dexamethasone TAB* 1 MG PO ONE (23:00)
== END 2019-09-10 14:30 | disposition left against medical advice (07) | DRG 853 ==
LOC: ED 07:38 → ICU 10:27
PROVIDERS: ADMIT Internal Medicine Critical Care Medicine; ATTEND Internal Medicine Critical Care Medicine
PROC: 0JB60ZZ Excision of Chest Subcutaneous Tissue and Fascia, Open Approach (ICD-10-PCS; principal; 2019-09-09)
DX: A41.9 Sepsis, unspecified organism (principal); J18.9 Pneumonia, unspecified organism; E87.1 Hypo-osmolality and hyponatremia; J44.0 Chronic obstructive pulmonary disease with (acute) lower respiratory infection; S21.109A Unspecified open wound of unspecified front wall of thorax without penetration into thoracic cavity, initial encounter; K74.69 Other cirrhosis of liver; B96.89 Other specified bacterial agents as the cause of diseases classified elsewhere; X58.XXXA Exposure to other specified factors, initial encounter; E87.6 Hypokalemia; M54.9 Dorsalgia, unspecified; D64.9 Anemia, unspecified; M41.9 Scoliosis, unspecified; E27.8 Other specified disorders of adrenal gland; F17.210 Nicotine dependence, cigarettes, uncomplicated; L08.9 Local infection of the skin and subcutaneous tissue, unspecified; I10 Essential (primary) hypertension; E78.5 Hyperlipidemia, unspecified; S00.31XA Abrasion of nose, initial encounter; S50.312A Abrasion of left elbow, initial encounter; S50.311A Abrasion of right elbow, initial encounter; S80.212A Abrasion, left knee, initial encounter; S80.211A Abrasion, right knee, initial encounter; W18.30XA Fall on same level, unspecified, initial encounter; R74.0 Nonspecific elevation of levels of transaminase and lactic acid dehydrogenase [LDH]; L68.0 Hirsutism; E28.2 Polycystic ovarian syndrome; Y92.009 Unspecified place in unspecified non-institutional (private) residence as the place of occurrence of the external cause; Z79.899 Other long term (current) drug therapy
CPT/HCPCS: 36415; 71045; 71260; 80048; 80053; 81003; 81015; 82436; 83605; 83735; 83930; 83935; 84133; 84300; 84443; 85025; 85027; 85610; 86140; 87070; 87077; 87086; 87186; 87205; 87640; 87641; 88304; 96361; 96365; 96375; 99284; A9270-GY; J0692; J1650; J2270; J3370; J3480; Q9967